=== PATIENT | female | born 1980 | race Caucasian/White ===

== ENCOUNTER 2018-01-12 07:49 | Outpatient (CLI) | payer OTHER ==
[2018-01-12 08:54] LABS: BASOPHILS % (AUTO) 0.8 % (0.0-2.0); EOSINOPHILS # (AUTO) 0.1 K/uL (0-0.4); EOSINOPHILS % (AUTO) 2.5 % (0.0-4.0); HEMATOCRIT 39.2 % (36-48); HEMOGLOBIN 13.2 g/dL (12.0-16.0); LYMPHOCYTES # (AUTO) 1.8 K/uL (2.5-16.5); LYMPHOCYTES % (AUTO) 36.5 % (20.5-51.1); MEAN CORPUSCULAR HEMOGLOBIN 31 pg (27-31); MEAN CORPUSCULAR HGB CONC 34 g/dL (33-37); MEAN CORPUSCULAR VOLUME 92.7 fL (80-94); MONOCYTES # (AUTO) 0.4 K/uL (0.8-1.0); MONOCYTES % (AUTO) 8.2 % (1.7-9.3); NEUTROPHILS # (AUTO) 2.5 K/uL (1.8-7.7); PLATELET COUNT (AUTO) 167 K/uL (140-450); RED BLOOD CELL COUNT(AUTO) 4.23 MIL/uL (4.20-5.40); RED CELL DISTRIBUTION WIDTH 13.6 % (11.6-13.7); WHITE BLOOD COUNT (AUTO) 4.9 K/uL (4.8-10.8)
[2018-01-12 09:58] LABS: ALBUMIN 3.7 g/dL (3.4-5.0); CARBON DIOXIDE 22.4 mmol/L (21-32); CHOL/HDL RATIO 3.1 (1-4.5); FREE T4 (FREE THYROXINE) 0.75 ng/dL (0.76-1.46); POTASSIUM 4.4 mmol/L (3.5-5.1); THYROID STIMULATING HORMONE 1.29 uIU/mL (0.34-3.74); TOTAL BILIRUBIN 0.3 mg/dL (0.0-1.0)
[2018-01-13 15:16] LABS: ESTRADIOL SERUM 41.6 pg/mL (.); FOLLICLE STIMULATING HORMONE 7.7 mIU/mL (.); LUTEINIZING HORMONE 5.5 mIU/mL (.); TRIIODOTHYRONINE FREE 2.7 pg/mL (2.0-4.4)
== END 2018-01-12 20:08 | disposition home or self-care (01) ==
LOC: MLB 07:49
DX: Z00.01 Encounter for general adult medical examination with abnormal findings (principal); E28.9 Ovarian dysfunction, unspecified; E34.9 Endocrine disorder, unspecified; M25.50 Pain in unspecified joint; R51 Headache
CPT/HCPCS: 36415; 80053; 82306; 82670; 83001; 83002; 84144; 84439; 84443; 84481; 85025